=== PATIENT | male | born 1990 | race Caucasian/White ===

== ENCOUNTER 2021-04-10 07:18 | Emergency (ER) | payer OTHER, SELFPAY ==
[2021-04-10 07:24] VITALS: BP 142/97; PULSE 83; RESP 18; TEMP 36.4; O2SAT 100
--- NOTE | 2021-04-10 08:07 | ED.MALEGU ---
HPI - Male Genitourinary General Chief complaint: Urogenital-Male Stated complaint: STD Check Time Seen by Provider: 04/10/21 07:52 Source: patient and RN notes reviewed Mode of arrival: ambulatory Limitations: no limitations History of Present Illness HPI Narrative: This is a 30 year old healthy male who presents for evaluation of possible STDS. He had sexual intercourse with a woman 2 days ago for the first time. He noticed today his stream went in two and he is having penile discharge. He has been taking [place] for his symptoms. He denies testicular pain, swelling, abdominal pain, nausea, vomiting or fever. He denies previous history of STDs. Related Data Allergies Allergy/AdvReac Type Severity Reaction Status Date / Time No Known Allergies Allergy Verified 04/10/21 07:54 Review of Systems Review of Systems: All systems reviewed & are unremarkable except as noted in HPI and below PMFSH Past Medical History Medical History (Updated 04/10/21 @ 08:12 by Maryjane Johnston MD) Patient denies medical problems Surgical History Surgical History (Updated 04/10/21 @ 08:09 by Maryjane Johnston MD) History of placement of ear tubes Social History Social History (Updated 04/10/21 @ 08:09 by Maryjane Johnston MD) Smoking status: Never smoker Exam Const: General: no acute distress and alert HENMT: Head: normal to inspection Eyes: EOM: EOMs intact bilaterally Resp: Effort & Inspection: normal respiratory effort GI: GI Palp: Yes Soft to palpation, No Tenderness to palpation present (GI) and No Guarding due to palpation present (GI) Auscultation: normal bowel sounds : Penis: Yes circumcised Testes: no testicular swelling and no testicular tenderness Skin: General skin exam: normal color Rashes: no rashes Neuro: General: patient oriented x3 and moves all extremities Course Reevaluation(s) Reevaluation #1: I Discussed with patient that he will be treated for STDS to cover gonorrhea and chlamydia Date: 04/10/21 Time: 08:09 Vital Signs Vital signs: Vital Signs Temperature 97.5 F L 04/10/21 07:24 Pulse Rate 83 04/10/21 07:24 Respiratory Rate 18 04/10/21 07:24 Blood Pressure 142/97 H 04/10/21 07:24 Pulse Oximetry 100 04/10/21 07:24 Temperature 97.5 F L 04/10/21 07:24 Pulse Rate 83 04/10/21 07:24 Respiratory Rate 18 04/10/21 07:24 Blood Pressure 142/97 H 04/10/21 07:24 Pulse Oximetry 100 04/10/21 07:24 MDM - Male Genitourinary Lab Data Labs: Lab Results 04/10/21 04/10/21 Range/Units 08:05 08:05 Urine Color Red H (Yellow) Urine Appearance Clear (Clear) Urine pH 5.0 (5.0-9.0) Ur Specific [place] 1.025 (1.001-1.035) Urine Protein 2+ H (Negative) mg/dL Urine Glucose (UA) Negative (Negative) mg/dL Urine Ketones Negative (Negative) mg/dL Ur Blood (Man) Negative (Negative) Urine Nitrate Positive H (Negative) Urine Bilirubin Negative (Negative) Urine Urobilinogen 4.0 H (<2.0) mg/dL Leukocyte Esterase Rfl Negative (Negative) DAWN/UL Urine RBC 6-10 H (0-2) /hpf Urine WBC >75 H /hpf Urine WBC Clumps Present H (None) /HPF Urine Mucus Moderate H /lpf C.trachomatis RNA (TMA) Pending N.gonorrhoeae RNA (TMA) Pending Discharge Plan Discharge Clinical Impression: Urethritis, nonspecific Patient Disposition: Home, Self-Care Condition: Stable Instructions: Antibiotic Form, Nonspecific Urethritis in Men (ED), Urinary Tract Infection in Men (ED) Additional Instructions: Today you were started on treatment to cover Gonorrhea and Chlamydia. Do not have sex 7 days after you complete your treatment Prescriptions: New doxycycline monohydrate 100 mg capsule 100 mg PO BID Qty: 14 RF: 0 cephalexin 500 mg capsule 500 mg PO Q6H 7 Days Qty: 28 RF: 0 Follow-up/Referrals: UNKNOWN,DOCTOR [Non-Staff] -
[2021-04-10 08:18] LABS: Add Urine Microscopic? YES; Appearance Urine Clear (Clear); Bilirubin Urine Negative (Negative); Blood Urine Negative (Negative); Color Urine Red (Yellow); Glucose Urine UA Negative (Negative); Ketones Urine Negative (Negative); Leukocyte Esterase Ur Negative LEU/UL (Negative); Mucus Urine Moderate /lpf; Nitrate Urine Positive (Negative); Protein Urine 2+ mg/dL (Negative); Specific Grav Ur 1.025 (1.001-1.035); WBC Clumps Urine Present /HPF; WBC Urine >75 /hpf
[2021-04-10] MEDS: cefTRIAXone 1 GM VIAL 0.5 GM IM (09:02)
[2021-04-10] MEDS: DOXYCYCLINE HYCLATE 100 MG TABLET PO (09:02)
== END 2021-04-10 09:04 | disposition home or self-care (01) ==
LOC: ANHED 08:28
PROVIDERS: Emergency Provider General Practice
DX: N34.2 Other urethritis (principal)
CPT/HCPCS: 81001; 87086; 87088; 87491; 87591; 96372; 99283; A9270; J0696